=== PATIENT | female | born 1980 | race Two or more races ===

== ENCOUNTER 2021-11-24 19:20 | Emergency (ER) | payer OTHER ==
[~2021-11-24] VITALS: Ht 172.7 cm; Wt 59.0 kg
[2021-11-24 20:43] VITALS: BP 109/67
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
[2021-11-24] MEDS ORDERED: KETOROLAC TROMETHAMINE INJ 30 MG/ML VIAL ONE (23:16)
--- NOTE | 2021-11-24 23:17 | NUR ---
TRANSPORTATION AID AT PT'S BEDSIDE
[2021-11-24] MEDS: KETOROLAC TROMETHAMINE INJ 60 MG/2 ML VIAL IM ONE (23:29)
[2021-11-24] MEDS ORDERED: NAPR-1009 PO (23:35)
[2021-11-24] MEDS ORDERED: CYCL10TA9 PO (23:35)
--- NOTE | 2021-11-24 23:50 | NUR ---
Patient discharged to home in stable condition. Written and verbal after care instructions given. Patient verbalizes understanding of instruction.
== END 2021-11-24 23:50 | disposition home or self-care (01) ==
LOC: ER 19:24
DX: S39.012A Strain of muscle, fascia and tendon of lower back, initial encounter (principal); S20.214A Contusion of middle front wall of thorax, initial encounter; S50.812A Abrasion of left forearm, initial encounter; Z60.2 Problems related to living alone; V89.2XXA Person injured in unspecified motor-vehicle accident, traffic, initial encounter; Y93.89 Activity, other specified; Y92.89 Other specified places as the place of occurrence of the external cause; Y99.8 Other external cause status
CPT/HCPCS: 99283; 71045; 96372; J1885